=== PATIENT | male | born 1960 | race Caucasian/White ===

== ENCOUNTER 2023-07-10 08:50 | Emergency (ER) | payer SELFPAY ==
[~2023-07-10] VITALS: Ht 167 cm; Wt 64.0 kg
[~2023-07-10 08:50] MED LIST: NAPR550T PO; OXYC-12 PO
[2023-07-10 09:01] LABS: BASOPHILS % (AUTO) 0 % (0-10); EOSINOPHILS % (AUTO) 0 % (0-10); HEMATOCRIT 44 % (40-54); HEMOGLOBIN 15.1 g/dL (13.3-17.7); LYMPHOCYTES # (AUTO) 0.7 10^3/uL (1.0-4.0); LYMPHOCYTES % (AUTO) 5 % (12-44); MEAN CORPUSCULAR HEMOGLOBIN 33 pg (25-34); MEAN CORPUSCULAR HGB CONC 34 g/dL (32-36); MEAN CORPUSCULAR VOLUME 97 fL (80-99); MEAN PLATELET VOLUME 9.7 fL (9.0-12.2); MONOCYTES # (AUTO) 0.9 10^3/uL (0.0-1.0); MONOCYTES % (AUTO) 6 % (0-12); NEUTROPHILS # (AUTO) 12.7 10^3/uL (1.8-7.8); NEUTROPHILS % (AUTO) 88 % (42-75); PLATELET COUNT 202 10^3/uL (130-400); WHITE BLOOD COUNT 14.5 10^3/uL (4.3-11.0)
--- NOTE | 2023-07-10 09:12 | ED Chest Pain ---
General Chief Complaint: Chest Pain Stated Complaint: CHEST PAINS Nursing Triage Note: PT STATES CHEST PAIN THAT STARTED MONDAY, GETTING WORSE, PAIN IN LT SHOULDER DOWN TO LT HAND, SWEATS AND CHILLS SINCE YESTERDAY BACK AND FORTH Source: patient Exam Limitations: no limitations History of Present Illness Date Seen by Provider: Jul 10, 2023 Time Seen by Provider: 05:30 Allergies and Home Medications Allergies Coded Allergies: No Known Drug Allergies (Unverified , 05/04/10) Past Xvnlbfd-Bpuwjw-Ggsdyh Hx Patient Social History Tobacco Use?: Yes Tobacco type used: Cigarettes Smoking Status: Current Everyday Smoker Substance use?: No Alcohol Use?: Yes Alcohol type: Beer Alcohol Frequency: Daily Past Medical History Surgery/Hospitalization HX: APPE, CAD WITH STENT-AMI Physical Exam Vital Signs Vital Signs - First Documented 07/10/23 08:53 Temp 36.4 Pulse 89 Resp 22 B/P (MAP) 116/81 (93) Pulse Ox 95 O2 Delivery Room Air Capillary Refill : Less Than 3 Seconds Height, Weight, BMI Height: '" Weight: lbs. oz. kg; 22.00 BMI Method:Stated Progress/Results/Core Measures Results/Orders Lab Results Laboratory Tests Test 07/10/23 08:56 07/10/23 10:58 Range/Units White Blood Count 14.5 H 4.3-11.0 10^3/uL Red Blood Count 4.54 4.30-5.52 10^6/uL Hemoglobin 15.1 13.3-17.7 g/dL Hematocrit 44 40-54 % Mean Corpuscular Volume 97 80-99 fL Mean Corpuscular Hemoglobin 33 25-34 pg Mean Corpuscular Hemoglobin Concent 34 32-36 g/dL Red Cell Distribution Width 14.6 H 10.0-14.5 % Platelet Count 202 130-400 10^3/uL Mean Platelet Volume 9.7 9.0-12.2 fL Immature Granulocyte % (Auto) 1 % Neutrophils (%) (Auto) 88 H 42-75 % Lymphocytes (%) (Auto) 5 L 12-44 % Monocytes (%) (Auto) 6 0-12 % Eosinophils (%) (Auto) 0 0-10 % Basophils (%) (Auto) 0 0-10 % Neutrophils # (Auto) 12.7 H 1.8-7.8 10^3/uL Lymphocytes # (Auto) 0.7 L 1.0-4.0 10^3/uL Monocytes # (Auto) 0.9 0.0-1.0 10^3/uL Eosinophils # (Auto) 0.0 0.0-0.3 10^3/uL Basophils # (Auto) 0.0 0.0-0.1 10^3/uL Immature Granulocyte # (Auto) 0.1 0.0-0.1 10^3/uL Neutrophils % (Manual) 81 % Lymphocytes % (Manual) 7 % Monocytes % (Manual) 8 % Eosinophils % (Manual) 0 % Basophils % (Manual) 0 % Band Neutrophils 4 % Blood Morphology Comment NORMAL Prothrombin Time 13.3 12.2-14.7 SEC INR Comment 1.0 0.8-1.4 Activated Partial Thromboplast Time 32 24-35 SEC Sodium Level 136 135-145 MMOL/L Potassium Level 3.7 3.6-5.0 MMOL/L Chloride Level 103 98-107 MMOL/L Carbon Dioxide Level 23 21-32 MMOL/L Anion Gap 10 5-14 MMOL/L Blood Urea Nitrogen 11 7-18 MG/DL Creatinine 0.85 0.60-1.30 MG/DL Estimat Glomerular Filtration Rate 98 BUN/Creatinine Ratio 13 Glucose Level 181 H 70-105 MG/DL Calcium Level 9.2 8.5-10.1 MG/DL Corrected Calcium 9.4 8.5-10.1 MG/DL Magnesium Level 2.0 1.6-2.4 MG/DL Total Bilirubin 0.8 0.1-1.0 MG/DL Aspartate Amino Transf (AST/SGOT) 26 5-34 U/L Alanine Aminotransferase (ALT/SGPT) 22 0-55 U/L Alkaline Phosphatase 62 40-136 U/L Myoglobin 39.9 10.0-92.0 NG/ML Troponin I < 0.028 <0.028 NG/ML C-Reactive Protein High Sensitivity 18.98 H 0.00-0.50 MG/DL B-Type Natriuretic Peptide 181.6 H <100.0 PG/ML Total Protein 6.9 6.4-8.2 GM/DL Albumin 3.7 3.2-4.5 GM/DL Influenza Type A (RT-PCR) Not Detected Not Detecte Influenza Type B (RT-PCR) Not Detected Not Detecte SARS-CoV-2 RNA (RT-PCR) Not Detected Not Detecte My Orders Orders - CAMPOS CANO MD Cbc And Automated Diff (07/10/23 08:53) Magnesium (07/10/23 08:53) Chest 1 View, Ap/Pa Only (07/10/23 08:53) Comprehensive Metabolic Panel (07/10/23 08:53) Myoglobin Serum (07/10/23 08:53) Protime With Inr (07/10/23 08:53) Partial Thromboplastin Time (07/10/23 08:53) O2 (07/10/23 08:53) Monitor-Rhythm Ecg Trace Only (07/10/23 08:53) Ed Iv/Invasive Line Start (07/10/23 08:53) Troponin I Dave (07/10/23 08:53) Ekg Tracing (07/10/23 08:52) Lipid Panel (07/11/23 06:00) Ct Cervical Spine Wo (07/10/23 09:10) Manual Differential (07/10/23 08:56) Covid 19 Inhouse Test (07/10/23 11:00) Influenza A And B By Pcr (07/10/23 11:00) Bnp [place] (07/10/23 11:00) Hs C Reactive Protein (07/10/23 11:00) Ketorolac Injection (Ketorolac Injection (07/10/23 11:15) Methylprednisolone Sod Succ (Methylpredn (07/10/23 12:00) Ceftriaxone Iv/Im (Ceftriaxone Iv/Im) (07/10/23 11:50) Medications Given in ED Current Medications Medications Dose Ordered Sig/Cristine Route Start Time Stop Time Status Last Admin Dose Admin Ketorolac Tromethamine 15 mg ONCE ONCE IVP 07/10/23 11:15 07/10/23 11:16 DC 07/10/23 11:20 15 MG Methylprednisolone Sodium Succinate 125 mg ONCE ONCE IVP 07/10/23 12:00 07/10/23 12:01 DC 07/10/23 12:01 125 MG Vital Signs/I&O 07/10/23 07/10/23 08:53 11:20 Temp 36.4 36.4 Pulse 89 Resp 22 B/P (MAP) 116/81 (93) Pulse Ox 95 O2 Delivery Room Air Blood Pressure Mean: 93 Initial ECG Impression Date: Jul 10, 2023 Initial ECG Impression Time: 09:50 Initial ECG Rate: 85 Initial ECG Rhythm: Normal Sinus Comment Sinus rhythm with no ST elevation or depression. LVH noted on automated read. No overt axis deviation. No abnormal intervals. Diagnostic Imaging Diagonstic Imaging: CT Plain Films/CT/US/NM/MRI: c-spine Comments NAME: TORITO GALLEGOS [facility] REC#: [id number] PT STATUS: REG ER : 1960 PHYSICIAN: CAMPOS CANO MD ADMIT DATE: 07/10/23/ER Draft Date of Exam:07/10/23 CT CERVICAL SPINE WO PROCEDURE: CT cervical spine without contrast. TECHNIQUE: Multiple contiguous axial images were obtained through the cervical spine without the use of intravenous contrast. Sagittal and coronal reformations were then performed. Auto Exposure Controls were utilized during the CT exam to meet ALARA standards for radiation dose reduction. INDICATION: Neck pain, left arm paresthesias. COMPARISON: None available. FINDINGS: Mild apex left curvature of the cervical spine. Straightening of the normal cervical lordosis without significant anterolisthesis or retrolisthesis. Alignment of the atlantooccipital joint is well-maintained. Besides endplate degenerative changes particularly involving C5, C6, and C7, the vertebral body heights are otherwise well maintained. Severe disc space height loss at C5, C6, and C7 with mild disc space height loss at C4/C5 and C7/T1. No acute fracture or dislocation. No destructive osseous process. The right 1st and 2nd ribs are partially cut off significant scattered facet joint degenerative changes and uncovertebral joint hypertrophy are present. C2/C3: Right greater than left facet joint degenerative changes and uncovertebral joint hypertrophy. There is resulting moderate right and mild to moderate left neuroforaminal stenosis. No high-grade osseous central canal stenosis. C3/C4: Mild facet joint degenerative changes and uncovertebral joint hypertrophy. There is resulting moderate left and mild right neuroforaminal stenosis. No high-grade osseous central canal stenosis. C4/C5: Severe right neuroforaminal stenosis and mild left neuroforaminal stenosis with mild central canal stenosis, particularly on the right. C5/C6: Severe disc space height loss. Bilateral facet joint degenerative changes and uncovertebral joint hypertrophy. Diffuse disc/osteophyte complex. There is resulting severe bilateral neuroforaminal stenosis with at least moderate central canal stenosis. C6/C7: Severe left and mild right facet joint degenerative changes and uncovertebral joint hypertrophy. Disc space height loss. Diffuse disc/osteophyte complex. There is resulting severe left neuroforaminal stenosis and mild right neuroforaminal stenosis. At least moderate central canal stenosis is present, particularly on the left. C7/T1: Left facet joint degenerative changes and uncovertebral joint hypertrophy. There is severe left neuroforaminal stenosis. Low-grade central canal stenosis. Mild emphysematous changes within the upper lungs without apical pneumothorax. Background vascular calcifications. IMPRESSION: No acute osseous abnormality with mild apex left curvature of the spine with advanced multilevel degenerative changes with resulting severe multilevel neuroforaminal stenosis with relatively high-grade multilevel central canal stenosis. This includes severe neuroforaminal stenosis at C5/C6 and C6/C7 with additional levels as above. Emphysematous changes within the upper lungs. Dictated on workstation # [id number] Dict: 07/10/23 0959 Trans: 07/10/23 1046 [id number] Interpreted by: FRIDA MENDOZA MD Diagonstic Imaging: Xray Plain Films/CT/US/NM/MRI: chest Comments NAME: TORITO GALLEGOS [facility] REC#: [id number] PT STATUS: REG ER : 1960 PHYSICIAN: CAMPOS CANO MD ADMIT DATE: 07/10/23/ER Signed Date of Exam:07/10/23 CHEST 1 VIEW, AP/PA ONLY CHEST 1 VIEW, AP/PA ONLY INDICATION: Chest pain. COMPARISON: None. FINDINGS: Lungs: Normal lung volume. Diffuse interstitial thickening. No focal consolidation. Pleura: No pleural effusion or pneumothorax. Heart and Mediastinum: Cardiac silhouette is within normal limits. Pulmonary vascular congestion. Osseous Structures and Soft Tissues: No acute osseous abnormality. Normal soft tissues. IMPRESSION: Diffuse bilateral interstitial opacities may be seen with pulmonary interstitial edema or atypical/viral pneumonia. Dictated by: Dictated on workstation # [id number] Dict: 07/10/23911 Trans: 07/10/23946 [facility] [id number] Interpreted by: EMELINA CORTES DO Electronically signed by: EMELINA CORTES DO 07/10/23946 Departure Impression Primary Impression: Atypical chest pain Additional Impressions: Cervical spinal stenosis Neuroforaminal stenosis of cervical spine Cervical radiculopathy Pneumonia Disposition: 01 HOME, SELF-CARE Condition: Improved Departure-Patient Inst. Decision time for Depature: 11:12 Referrals: NO,LOCAL PHYSICIAN (PCP/Family) Primary Care Physician Patient Instructions: Spinal stenosis Add. Discharge Instructions: Complete your antibiotics as prescribed. Follow-up with a primary care provider soon as possible. Please call today to make an appointment. When you call to make the appointment, make sure you explain this is follow-up from an ER visit and you need to be seen promptly. For pain you may take ibuprofen up to 600 mg every 6 hours as needed and/or Tylenol (acetaminophen) up to 1000 mg every 6 hours as needed for pain. Take ibuprofen with food or milk to avoid stomach upset. Take prednisone as prescribed to help reduce inflammation and pain from your spinal stenosis. Take prednisone early in the day to avoid sleep disturbance and with food or milk to help avoid stomach upset. Work on quitting smoking as rapidly as possible. This will improve your overall health and should speed recovery. Return to the emergency room if you have worsening symptoms despite following these instructions. Return to emergency room immediately or call 911 if you develop weakness of the arms or legs, loss of control of arms or legs, loss of feeling in arms or legs, numbness in the groin, difficulty controlling your bowels or bladder, or any other significant neurological problems. If possible, you should present to a facility with neurosurgical capabilities and 24-hour MRI services such as [facility] in [place]. Take aspirin 81 mg daily until otherwise instructed by your doctor. All discharge instructions reviewed with patient and/or family. Voiced understanding. Scripts Prednisone (Prednisone) 20 Mg Tab 40 MG PO DAILY, #8 TAB 0 Refills Prov: CAMPOS CANO MD 07/10/23 Azithromycin (Azithromycin) 250 Mg Tablet 250 MG PO UD, #6 TAB TAKE 2 TABLETS ON DAY ONE THEN TAKE 1 TABLET DAILY FOR FOUR MORE DAYS Prov: CAMPOS CANO MD 07/10/23 Cefdinir (Cefdinir) 300 Mg Capsule 300 MG PO BID, #20 CAP 0 Refills Prov: CAMPOS CANO MD 07/10/23 Copy Copies To 1: [facility] [place] CAMPOS CANO MD Jul 10, 2023 09:12
[2023-07-10 09:15] LABS: ALBUMIN 3.7 GM/DL (3.2-4.5); CHLORIDE 103 MMOL/L (98-107); POTASSIUM 3.7 MMOL/L (3.6-5.0); SODIUM 136 MMOL/L (135-145)
[2023-07-10 09:16] LABS: CALCIUM 9.2 MG/DL (8.5-10.1)
[2023-07-10 09:17] LABS: GLUCOSE 181 MG/DL (70-105); PROTHROMBIN TIME PATIENT 13.3 SEC (12.2-14.7); TOTAL PROTEIN 6.9 GM/DL (6.4-8.2)
[2023-07-10 09:18] LABS: CARBON DIOXIDE 23 MMOL/L (21-32)
[2023-07-10 09:19] LABS: BILIRUBIN,TOTAL 0.8 MG/DL (0.1-1.0)
[2023-07-10 09:21] LABS: ALKALINE PHOSPHATASE 62 U/L (40-136); CREATININE SERUM 0.85 MG/DL (0.60-1.30); GFR ESTIMATED 98
[2023-07-10 09:22] LABS: BUN/CREATININE RATIO 13
[2023-07-10 09:24] LABS: ALANINE AMINOTRANSFERASE 22 U/L (0-55)
[2023-07-10 09:46] LABS: BAND NEUTROPHILS 4 %; BASOPHILS % (MANUAL) 0 %; EOSINOPHILS % (MANUAL) 0 %; LYMPHOCYTES % (MANUAL) 7 %; MONOCYTES % (MANUAL) 8 %; NEUTROPHILS % (MANUAL) 81 %; RBC MORPH NORMAL
--- NOTE | 2023-07-10 09:49 | Diagnostic Imaging Report ---
CHEST 1 VIEW, AP/PA ONLY INDICATION: Chest pain. COMPARISON: None. FINDINGS: Lungs: Normal lung volume. Diffuse interstitial thickening. No focal consolidation. Pleura: No pleural effusion or pneumothorax. Heart and Mediastinum: Cardiac silhouette is within normal limits. Pulmonary vascular congestion. Osseous Structures and Soft Tissues: No acute osseous abnormality. Normal soft tissues. IMPRESSION: Diffuse bilateral interstitial opacities may be seen with pulmonary interstitial edema or atypical/viral pneumonia. Dictated by: Dictated on workstation # [id number]
--- NOTE | 2023-07-10 10:47 | Diagnostic Imaging Report ---
PROCEDURE: CT cervical spine without contrast. TECHNIQUE: Multiple contiguous axial images were obtained through the cervical spine without the use of intravenous contrast. Sagittal and coronal reformations were then performed. Auto Exposure Controls were utilized during the CT exam to meet ALARA standards for radiation dose reduction. INDICATION: Neck pain, left arm paresthesias. COMPARISON: None available. FINDINGS: Mild apex left curvature of the cervical spine. Straightening of the normal cervical lordosis without significant anterolisthesis or retrolisthesis. Alignment of the atlantooccipital joint is well-maintained. Besides endplate degenerative changes particularly involving C5, C6, and C7, the vertebral body heights are otherwise well maintained. Severe disc space height loss at C5, C6, and C7 with mild disc space height loss at C4/C5 and C7/T1. No acute fracture or dislocation. No destructive osseous process. The right 1st and 2nd ribs are partially fused. Significant scattered facet joint degenerative changes and uncovertebral joint hypertrophy are present. C2/C3: Right greater than left facet joint degenerative changes and uncovertebral joint hypertrophy. There is resulting moderate right and mild to moderate left neuroforaminal stenosis. No high-grade osseous central canal stenosis. C3/C4: Mild facet joint degenerative changes and uncovertebral joint hypertrophy. There is resulting moderate left and mild right neuroforaminal stenosis. No high-grade osseous central canal stenosis. C4/C5: Severe right neuroforaminal stenosis and mild left neuroforaminal stenosis with mild central canal stenosis, particularly on the right. C5/C6: Severe disc space height loss. Bilateral facet joint degenerative changes and uncovertebral joint hypertrophy. Diffuse disc/osteophyte complex. There is resulting severe bilateral neuroforaminal stenosis with at least moderate central canal stenosis. C6/C7: Severe left and mild right facet joint degenerative changes and uncovertebral joint hypertrophy. Disc space height loss. Diffuse disc/osteophyte complex. There is resulting severe left neuroforaminal stenosis and mild right neuroforaminal stenosis. At least moderate central canal stenosis is present, particularly on the left. C7/T1: Left facet joint degenerative changes and uncovertebral joint hypertrophy. There is severe left neuroforaminal stenosis. Low-grade central canal stenosis. Mild emphysematous changes within the upper lungs without apical pneumothorax. Background vascular calcifications. IMPRESSION: No acute osseous abnormality with mild apex left curvature of the spine with advanced multilevel degenerative changes with resulting severe multilevel neuroforaminal stenosis with relatively high-grade multilevel central canal stenosis. This includes severe neuroforaminal stenosis at C5/C6 and C6/C7 with additional levels as above. MRI of the cervical spine could help to further evaluate underlying radiculopathy and stenosis. Emphysematous changes within the upper lungs. Dictated by: Dictated on workstation # [id number]
[2023-07-10] MEDS ORDERED: KETOROLAC INJ 30 MG/ML VIAL IVP ONE (11:15)
[2023-07-10] MEDS ORDERED: cefTRIAXone IV/IM 1,000 MG in NS (IVPB) 50 ML 50 ML IV STA (11:50)
[2023-07-10] MEDS ORDERED: methylPREDNISolone INJ 125 MG VIAL IVP ONE (12:00)
[2023-07-10] MEDS ORDERED: CEFD300C3 PO (12:47)
[2023-07-10] MEDS ORDERED: PRD20T PO (12:47)
[2023-07-10] MEDS ORDERED: AZIT250T12 PO (12:47)
[2023-07-10 12:54] VITALS: BP 116/76
== END 2023-07-10 12:54 | disposition home or self-care (01) ==
LOC: EDUNIT# 08:50 → ER 08:52
DX: J18.9 Pneumonia, unspecified organism (principal); M48.02 Spinal stenosis, cervical region; M54.12 Radiculopathy, cervical region; F17.210 Nicotine dependence, cigarettes, uncomplicated
CPT/HCPCS: 36415; 71045; 72125; 80053; 83735; 83874; 83880; 84484; 85007; 85027; 85610; 85730; 86141; 87636; 93005; 93041